=== PATIENT | female | born 1960 | race Caucasian/White ===

== ENCOUNTER 2019-02-13 00:23 | Outpatient (CLI) | payer OTHER | END 2019-02-13 00:24 | disposition short-term general hospital (02) | LOC: EMS 00:23 | PROVIDERS: ATTEND Surgery | DX: R10.12 Left upper quadrant pain (principal) | CPT/HCPCS: A0425; A0426 ==

== ENCOUNTER 2022-05-05 15:50 | Outpatient (CLI) | payer OTHER ==
--- NOTE | 2022-05-06 00:54 | XRAY Report ---
PROCEDURE: Chest 2 View X-Ray INDICATIONS: PRODUCTIVE COUGH TECHNIQUE: 2 views of the chest were acquired. COMPARISON: None. FINDINGS: Cardiomediastinal contour and central vasculature are normal. Lungs demonstrate mild diffuse coarseni ng of the interstitial markings bilaterally without dense consolidation, effusion, or pneumothorax. S oft tissues and osseous structures are normal. IMPRESSION: 1. Mild diffuse interstitial thickening may be seen in viral pneumonia. Correlate clinically. Reviewed by: Krystin Pinzon MD on 05/06/2022 12:53 AM PDT Approved by: Krystin Pinzon MD on 05/06/2022 12:53 AM PDT Station ID: [id number]
== END 2022-05-05 23:59 | disposition home or self-care (01) ==
LOC: DI.N 15:50
PROVIDERS: ATTEND Nurse Practitioner
DX: R05.9 Cough, unspecified (principal)

== ENCOUNTER 2022-10-17 13:15 | Emergency (ER) | payer OTHER ==
[2022-10-17] MEDS ORDERED: IPRATROPIUM/ALBUTEROL 3 ML NEB INH STA (13:48)
[2022-10-17] MEDS ORDERED: ACETAMINOPHEN 500 MG TABLET PO STA (13:49)
[2022-10-17] MEDS ORDERED: DEXAMETHASONE 10 MG/ML VIAL IVP STA (13:50)
[2022-10-17] MEDS ORDERED: ONDANSETRON 4 MG/2 ML VIAL IVP STA (13:51)
[2022-10-17 14:15] LABS: BASOPHILS % (AUTO) 0.2 %; EOSINOPHILS % (AUTO) 0.2 %; HCT - HEMATOCRIT 36.7 % (37.0-47.0); HGB - HEMOGLOBIN 12.5 g/dL (12.0-16.0); LYMPHOCYTES # (AUTO) 1.2 10^3/uL (1.5-3.5); LYMPHOCYTES % (AUTO) 25.5 %; MEAN CORPUSCULAR HEMOGLOBIN 28.9 pg (27.0-31.0); MEAN CORPUSCULAR HGB CONC 34.1 g/dL (32.0-36.0); MEAN PLATELET VOLUME 9.4 fL (7.9-10.8); MONOCYTES # (AUTO) 0.3 10^3/uL (0.0-1.0); MONOCYTES % (AUTO) 7.2 %; NEUTROPHILS # (AUTO) 3.1 10^3/uL (1.5-6.6); NEUTROPHILS % (AUTO) 66.7 %; PLT - PLATELET COUNT 164 10^3/uL (130-450); RED BLOOD COUNT 4.32 10^6/uL (4.20-5.40); RED CELL DISTRIBUTION WIDTH 11.8 % (12.0-15.0); WHITE BLOOD COUNT 4.6 x10^3/uL (4.8-10.8)
--- OUTSIDE RECORDS SUMMARY | 2022-10-17 14:26 | EXTERNAL MEDICAL SUMMARY RPT | Continuity of Care Document ---
:1960 Author Organization [facility] Address [address] [place] [address] Phone Allergies No information. Encounters No information. Functional Status No information. Immunizations No information. Medications No information. Problems date description facility 2022-08-31 13:47 Low back pain, unspecified [facility] 2022-08-31 19:33 Low back pain, unspecified [facility] Procedures No information. Results/Labs test date author facility value unit interpret ation Result panel 1 (unknown) (no (unknown) (unknown) (no value) (units (unk nown) date) unknown) (unknown) (no (unknown) (unknown) 08/31/22 (units (unkno wn) date) unknown) (unknown) (no (unknown) (unknown) 1. No canal (units (un known) date) stenosis or unknown) foraminal stenosis. (unknown) (no (unknown) (unknown) [address] [place] [address] (units (unknown) date) unknown) (unknown) (no (unknown) (unknown) 2. Multilevel (units ( unknown) date) facet unknown) arthropathy. (unknown) (no (unknown) (unknown) Accession (units (unkn own) date) Number: unknown) [id number] (unknown) (no (unknown) (unknown) Age/Sex: 62 / F (units (unknown) date) Date of Service: unknown) (unknown) (no (unknown) (unknown) Alignment and (units ( unknown) date) Curvature: There unknown) is normal bony alignment. (unknown) (no (unknown) (unknown) [facility] (units ( unknown) date) [id number] unknown) (unknown) (no (unknown) (unknown) Approved by: (units (u nknown) date) keith Rodrigez M.D. on 09/01/2022 at 9:30 (unknown) (no (unknown) (unknown) Bone Marrow: (units (u nknown) date) Marrow is of unknown) normal overall signal. No acute vertebral body (unknown) (no (unknown) (unknown) COMPARISON: (units (un known) date) [facility] unknown) [facility], CR, XR LUMBAR SPINE WITH (unknown) (no (unknown) (unknown) : 1960 (units (unknown) date) Acct:[id number] unknown) (unknown) (no (unknown) (unknown) Dictated by: (units (u nknown) date) keith Rodrigez M.D. on 09/01/2022 at 9:25 (unknown) (no (unknown) (unknown) FINDINGS: (units (unkn own) date) unknown) (unknown) (no (unknown) (unknown) IMPRESSION: (units (un known) date) unknown) (unknown) (no (unknown) (unknown) INDICATIONS: LOW (units (unknown) date) BACK PAIN unknown) (unknown) (no (unknown) (unknown) Image quality: (units (unknown) date) Excellent. unknown) (unknown) (no (unknown) (unknown) [facility] (units (unknown) date) unknown) (unknown) (no (unknown) (unknown) L1-L2: Mild (units (un known) date) facet unknown) hypertrophy. No canal stenosis or foraminal stenosis. (unknown) (no (unknown) (unknown) L2-L3: Mild (units (un known) date) facet unknown) hypertrophy. Minimal disc bulge. No canal stenosis or (unknown) (no (unknown) (unknown) L3-L4: Mild disc (units (unknown) date) bulge. Mild facet unknown) hypertrophy. No canal stenosis or (unknown) (no (unknown) (unknown) L4-L5: Mild disc (units (unknown) date) bulge. Facet unknown) hypertrophy. No canal stenosis or foraminal (unknown) (no (unknown) (unknown) L5-S1: Facet (units (u nknown) date) hypertrophy. No unknown) canal stenosis or foraminal stenosis. (unknown) (no (unknown) (unknown) Loc: MRI (units (unkno wn) date) unknown) (unknown) (no (unknown) (unknown) MR#: [id number] (units (unknown) date) unknown) (unknown) (no (unknown) (unknown) Magnetic (units (unkno wn) date) Resonance Report unknown) (unknown) (no (unknown) (unknown) Noncontrast (units (un known) date) sagittal T1 spin unknown) echo and T2 fast echo, sagittal STIR, and T2 fast (unknown) (no (unknown) (unknown) OBLIQUES (units (unkno wn) date) unknown) (unknown) (no (unknown) (unknown) Ordering (units (unkno wn) date) Provider: unknown) Fadi Stewart MD (unknown) (no (unknown) (unknown) PLUS FLEXION (units (u nknown) date) EXTENSION, unknown) 08/12/2022, 13:27. (unknown) (no (unknown) (unknown) PROCEDURE: MR (units ( unknown) date) LUMBAR SPINE WO unknown) CON (unknown) (no (unknown) (unknown) Paraspinous Soft (units (unknown) date) Tissues: No unknown) paravertebral masses. (unknown) (no (unknown) (unknown) Patient: (units (unkno wn) date) Sachin Ortez unknown) Jasmina Parkinson (unknown) (no (unknown) (unknown) Procedure: MR (units ( unknown) date) lumbar spine wo unknown) con (unknown) (no (unknown) (unknown) Signed (units (unkno wn) date) unknown) (unknown) (no (unknown) (unknown) Spinal Cord: (units (u nknown) date) Conus medullaris unknown) terminates at the L1 level. Visualized cord (unknown) (no (unknown) (unknown) T12-L1: Disc (units (u nknown) date) height loss, unknown) anterior osteophytes. Disc bulge. Facet (unknown) (no (unknown) (unknown) TECHNIQUE: (units (unk nown) date) unknown) (unknown) (no (unknown) (unknown) canal stenosis (units (unknown) date) or foraminal unknown) stenosis. (unknown) (no (unknown) (unknown) compression (units (un known) date) unknown) (unknown) (no (unknown) (unknown) demonstrates (units (u nknown) date) unknown) (unknown) (no (unknown) (unknown) foraminal (units (unkn own) date) unknown) (unknown) (no (unknown) (unknown) fractures. (units (unk nown) date) unknown) (unknown) (no (unknown) (unknown) hypertrophy. No (units (unknown) date) unknown) (unknown) (no (unknown) (unknown) may be (units (unkno wn) date) performed. unknown) (unknown) (no (unknown) (unknown) normal signal (units ( unknown) date) and size. unknown) (unknown) (no (unknown) (unknown) spin echo (units (unkn own) date) unknown) (unknown) (no (unknown) (unknown) stenosis. (units (unkn own) date) unknown) (unknown) (no (unknown) (unknown) through the (units (un known) date) lumbar spine. In unknown) cases with scoliosis, additional coronal T2 fast Social History No information. Vital Signs No information.
[2022-10-17 14:29] LABS: ALBUMIN 3.4 g/dL (3.2-5.5); ALBUMIN/GLOBULIN RATIO 1.1 (1.0-2.2); BILIRUBIN,TOTAL 0.5 mg/dL (0.2-1.0); CALCIUM 9.4 mg/dL (8.5-10.3); CREATININE 0.7 mg/dL (0.4-1.0); MAGNESIUM 1.6 mg/dL (1.7-2.8); POTASSIUM 3.7 mmol/L (3.5-5.0); TOTAL PROTEIN 6.5 g/dL (6.7-8.2)
--- NOTE | 2022-10-17 14:42 | XRAY Report ---
PROCEDURE: Chest 1 View X-Ray INDICATIONS: chest pain TECHNIQUE: One view of the chest was acquired. COMPARISON: Chest x-ray 05/05/2020 FINDINGS: Surgical changes and devices: None. Lungs and pleura: No pleural effusions or pneumothorax. Lungs are clear. Mediastinum: Mediastinal contours appear normal. Heart size is normal. Bones and chest wall: No suspicious bony lesions. Overlying soft tissues appear unremarkable. IMPRESSION: No acute pulmonary process. Reviewed by: Lynn Hdez MD on 10/17/2022 2:41 PM PDT Approved by: Lynn Hdez MD on 10/17/2022 2:41 PM PDT Station ID: [id number]
--- NOTE | 2022-10-17 15:42 | ED Physician Documentation ---
PD HPI URI - Stated complaint Stated Complaint: LFT SHOULDER/WRIST PX, COVID+ - Chief complaint Chief Complaint: Resp - History obtained from History obtained from: Patient, Family - History of Present Illness Timing - onset: How many days ago (3-4) Timing duration: Days (3-4) Timing details: Abrupt onset, Still present Associated symptoms: Fever, Chills, Nasal congestion, Sinus pain, Dry cough, NVD (nausea), Unilateral edema (mild swelling around right ankle. Pain for a week or more in right anterior tibial area with walking. no calf pain per se.), Other (diffuse joint aches) Contributing factors: Sick contact (tested positive for COVID 2 days ago. Has gotten much worse breathing and feels an increase in her asthma symptoms.) Similar symptoms before: Diagnosis (history of asthma and has had some exac with URIs, but current feels more than other times.) Recently seen: Clinic (went to PCP for her leg pain several days ago, prior to URI symptoms. Outpt U/S was ordered and is scheduled for this coming week.) Review of Systems Constitutional: reports: Fever, Chills, Myalgias, Fatigue Nose: reports: Congestion Throat: denies: Sore throat Cardiac: reports: Chest pain / pressure (with coughing) Respiratory: reports: Dyspnea, Cough, Wheezing GI: reports: Nausea. denies: Vomiting, Diarrhea Skin: denies: Rash Neurologic: reports: Generalized weakness, Headache. denies: Near syncope, Altered mental status PD PAST MEDICAL HISTORY - Past Medical History Cardiovascular: None Respiratory: Asthma Neuro: Migraines (gets botox injections, which help a lot. ) Endocrine/Autoimmune: HyPOthyroidism GI: Hemorrhoids Psych: Depression, Anxiety Musculoskeletal: Fibromyalgia - Present Medications Home Medications: Ambulatory Orders Medication Instructions Recorded Confirmed Albuterol Sulfate [Albuterol 1 puffs INH PRN PRN 02/12/19 02/12/19 Sulfate Hfa] Fluticasone/Salmeterol [Advair Hfa 2 puffs BID 02/12/19 02/12/19 230-21 Mcg Inhaler] Sertraline [Zoloft] 100 mg PO DAILY 02/12/19 02/12/19 Zafirlukast [Accolate] 20 mg PO BID 02/12/19 02/12/19 Ipratropium [Atrovent] 0.5 mg INH Q6H #30 each 10/17/22 Ondansetron Odt [Zofran] 4 mg TL Q6H PRN #15 tablet 10/17/22 dexAMETHasone [Decadron] 4 mg PO DAILY #5 tablet 10/17/22 - Allergies Allergies/Adverse Reactions: Allergies Allergy/AdvReac Type Severity Reaction Status Date / Time aspirin Allergy Emesis Verified 10/17/22 13:26 cefuroxime [From Ceftin] Allergy Hives Verified 10/17/22 13:26 clindamycin Allergy Hives Verified 10/17/22 13:26 cyclobenzaprine Allergy Anxiety Verified 10/17/22 13:26 [From Flexeril] fluoxetine [From Prozac] Allergy Anxiety Verified 02/12/19 18:03 ibuprofen [From Motrin] Allergy Nausea Verified 10/17/22 13:26 pregabalin [From Lyrica] Allergy Unknown Verified 10/17/22 13:26 topiramate [From Topamax] Allergy Unknown Verified 10/17/22 13:26 - Social History Does the pt smoke?: No Smoking Status: Never smoker Does the pt drink ETOH?: No Does the pt have substance abuse?: No - POLST Patient has POLST: No PD ED PE NORMAL - Vitals Vital signs reviewed: Yes - General General: Alert and oriented X 3, Well developed/nourished - HEENT HEENT: Moist mucous membranes, Pharynx benign - Neck Neck: Supple, no meningeal sign, No adenopathy - Cardiac Cardiac: RRR, No murmur - Respiratory Respiratory: No: Clear bilaterally (diffuse exp wheezing and decreased tidal volume. ) - Abdomen Abdomen: Soft, Non tender - Derm Derm: Normal color, Warm and dry - Extremities Extremities: No edema, Other (right leg with some swelling around ankle and some pain mostly anterior tibial area, not really in calf. ) - Neuro Neuro: Alert and oriented X 3, No motor deficit, Normal speech Results - Vitals Vitals: Oxygen O2 Source Room air - Labs Labs: Laboratory Tests 10/17/22 10/17/22 10/17/22 14:08 14:08 14:08 WBC 4.6 L RBC 4.32 Hgb 12.5 Hct 36.7 L MCV 85.0 MCH 28.9 MCHC 34.1 RDW 11.8 L Plt Count 164 MPV 9.4 Neut # (Auto) 3.1 Lymph # (Auto) 1.2 L [place] # (Auto) 0.3 Eos # (Auto) 0.0 Baso # (Auto) 0.0 Absolute Nucleated RBC 0.00 Nucleated RBC % 0.0 Sodium 135 Potassium 3.7 Chloride 100 L Carbon Dioxide 25 Anion Gap 10.0 BUN 14 Creatinine 0.7 Estimated GFR (MDRD) 84 L Glucose 101 H Calcium 9.4 Magnesium 1.6 L Total Bilirubin 0.5 AST 39 ALT 34 Alkaline Phosphatase 66 Total Creatine Kinase 166 B-Natriuretic Peptide 49 Total Protein 6.5 L Albumin 3.4 Globulin 3.1 Albumin/Globulin Ratio 1.1 Lipase 32 - Rads (name of study) chest xray Relevant Findings:: Prelim report reviewed, EMP independent interpretation of test (no infiltrates), See rad report duplex right leg Relevant Findings:: Prelim report reviewed (no DVT), See rad report PD Medical Decision Making - ED course Complexity details: reviewed results (right leg without DVT. Sounds like anterior tibial muscle strain ("nur splint").), considered differential (tested positive for COVID 2 days ago. Has increasing dyspnea and cough. history of asthma with mild symptoms. can treat as asthma exac. She is past the window for much effect from Paxlovid. ), d/w patient Departure - Departure Disposition: 01 Home, Self Care Clinical Impression: Exacerbation of asthma, Acute joint pain, COVID-19 Condition: Stable Record reviewed to determine appropriate education?: Yes Prescriptions: Ipratropium [Atrovent] 0.5 mg INH Q6H #30 each dexAMETHasone [Decadron] 4 mg PO DAILY #5 tablet Ondansetron Odt [Zofran] 4 mg TL Q6H PRN #15 tablet PRN Reason: Nausea / Vomiting Comments: Your chest x-ray is clear without any signs of pneumonia. Your basic blood tests are good without any signs of heart failure or heart muscle injury. Your ultrasound of the leg does not show any blood clots. Otherwise basic electrolytes and blood count are good as well. At this point I would presume the symptoms are largely the effect of the viral illness along with the exacerbation of asthma. I would have you add ipratropium/Atrovent to your albuterol in the nebulizer 4 times a day over the next several days to week. This seemed to work better than the albuterol alone for you. Dexamethasone steroid daily for the next 5 days to help with inflammation of the airways and decrease your asthma symptoms. Use ondansetron if needed for nausea. Tylenol 650 mg 4 times daily to help with pains. Stay well-hydrated. I sent your prescriptions to [facility] in [place]. I would anticipate improvement over the next several days and resolution over the next 5 to 7 days. Recheck if worsening Discharge Date/Time: 10/17/22 16:09
--- NOTE | 2022-10-17 15:56 | Ultrasound Report ---
PROCEDURE: Duplex Ext Veins Right INDICATIONS: right lower leg pain and some ankle edema. TECHNIQUE: Real-time imaging, as well as color and pulse Doppler interrogation, were performed of the lower extr emity deep veins from the inguinal ligament to the popliteal fossa. COMPARISON: None. FINDINGS: The deep veins are normally compressible, and free of intraluminal thrombus. Color and pu lse Doppler demonstrate normal phasic intraluminal flow. There is normal augmentation response to di stal compression maneuver. IMPRESSION: No deep venous thrombosis. Reviewed by: Lynn Hdez MD on 10/17/2022 3:54 PM PDT Approved by: Lynn Hdez MD on 10/17/2022 3:54 PM PDT Station ID: [id number]
[2022-10-17 16:10] VITALS: BP 113/54
== END 2022-10-17 16:09 | disposition home or self-care (01) ==
LOC: ED 13:15
DX: U07.1 COVID-19 (principal); J45.901 Unspecified asthma with (acute) exacerbation; M25.571 Pain in right ankle and joints of right foot
CPT/HCPCS: 36415; 71045; 80053; 82550; 83690; 83735; 83880; 85025; 93971; 94640; 96374; 96375; 99284; A9270

== ENCOUNTER 2023-11-02 12:47 | Outpatient (CLI) | payer MEDICARE, OTHER ==
--- NOTE | 2023-11-02 22:36 | SLEEP CARE CONSULTATION ---
Information from patient questionnaire entered by Hernando Butts. I have reviewed and concur with the information entered by Hernando Butts. This document represents the service I personally performed and the decisions made by me, Natalia Uriostegui MD, [facility]. History of Present Illness Service Date and Time: 11/02/2023 1247 Reason for Visit: New patient Chief Complaint: reports: Insomnia, Excessive daytime sleepiness, Fatigue, Frequent awakenings at night, Other (PRIMARY CARE PROVIDER UNCOMFORTABLE PRESCRIBING SLEEP MEDS) Date of Onset: SINCE MY TEENS Usual bedtime: 2300 Time it takes to fall asleep: 30MIN TO AN HR SOMETIMES LONGER Snores at night: No Observed to quit breathing while asleep: No Sleeps alone due to snoring: No Number of times waking at night: 1-2 Reasons for waking at night: reports: Pain, Other (UNKNOWN) Toss, Turn, or Twitch while sleeping: No Recalls having dreams: Yes Usually gets out of bed at: VARIES Feels refreshed in the morning: No Morning headache: Yes Sleepy or fatigued during the day: Yes Ever fallen asleep while driving: No Takes day naps: Yes Dreams during day naps: Yes Prior sleep studies: Yes Additional HPI information: I have the pleasure of seeing Ms. Ortez today regarding the possibility of her having a sleep disorder. As you know, she is a 63-year-old lady who complains of insomnia for over 40 years. She states that she contracted fibromyalgia from her college dormitory, and because of the condition, she needs more sleep. When she does not sleep enough, the pain is worse. She has been taking trazodone for about 40 years but recently her furnace unloader said the medication made her eyes dry. Doxepin was tried but it did not work. She is looking for something else to take. The patient tells me that she normally goes to bed around 11 pm, and it takes her approximately 30 - 60 minutes to fall asleep. She does not snore and has never been observed to quit breathing at night. Her sleeps in the same room. He wears a CPAP. She sleeps with earplugs. She can recall waking up on the average of 1 - 2 times during the night. Most of the time she wakes up because of pain. She usually wakes up around 3:30 am and unable to fall back asleep. She lies in bed until 6 am. She takes a short nap of less than 30 minutes during the day. She reports having concentration and memory problems. She denies having restless leg syndrome. She feels tired and sleepy during the day. Her Ambrose Sleepiness Scale score is only 2. She said she had a sleep study with Dr. Arizmendi in [place] 30 years ago (this is not quite possible because our sleep [facility] the [facility] [place] and started 20 years ago). She said she only had the study but never seen the doctor. No diagnosis or treatment came out from the study. - Parasomnia Symptoms Ever been unable to move upon waking from sleep: No Walks in sleep: No Talks in sleep: No Ever acted out dreams in sleep: No Ever felt weak in the knees when startled or emotional: No Bothered by creepy, crawly, restless sensations in legs: No Problems with memory or concentration: Yes Subjective Initial Ambrose Sleepiness Scale score: 2 (10/27/23) Past Medical History Past Medical History: reports: Arthritis, Hypothyroidism, Fibromyalgia, Anxiety, Asthma, Other (SEVERE DRY EYE, MIGRAINES, ENVIRONMENTAL ALLERGIES) Social History The patient's occupation is a [employer]. Patient is and lives in [place]. Have you smoked in the past 12 months: No Alcohol use: No Caffeine use: Yes Caffeine amount and frequency: [address] PEPPER W/MIGRINE MED Family History Family history of sleep disordered breathing: No (UNKNOWN) Allergies and Home Medications Known drug allergies: Yes ( LISTED ) Drug allergies reviewed: Yes Home medication list reviewed: Yes Allergy and home medication list: Allergies aspirin Allergy (Verified 10/29/23 14:45) Emesis cefuroxime [From Ceftin] Allergy (Verified 10/29/23 14:45) Hives clindamycin Allergy (Verified 10/29/23 14:45) Hives cyclobenzaprine [From Flexeril] Allergy (Verified 10/29/23 14:45) Anxiety fluoxetine [From Prozac] Allergy (Verified 10/29/23 14:45) Anxiety ibuprofen [From Motrin] Allergy (Verified 10/29/23 14:45) Nausea pregabalin [From Lyrica] Allergy (Verified 10/29/23 14:45) Unknown "uncontrolled urination and weight gain. topiramate [From Topamax] Allergy (Verified 10/29/23 14:45) Unknown Review of Systems Cardiovascular: reports: high blood pressure Respiratory: reports: shortness of breath, wheeze, sputum production Gastrointestinal: reports: difficulty swallowing Urinary: reports: incontinence Neurological: reports: headaches Psychiatric: reports: anxiety, depression Ear/Nose/Throat: reports: sinus problems, dry mouth/throat, hoarseness, tonsillectomy Endocrine: reports: thyroid disease, sluggishness, too hot or cold, increased appetite Musculoskeletal: denies: joint pain, neck pain, back pain, joint swelling, muscle pain or cramping, mobility problems, other Immunologic: reports: sneezing, rash, itching, allergies to food or environment Physical Exam Vital signs obtained and entered by: HERNANDO Riggins MA Blood Pressure: 163/83 (LEFT ARM) Cuff size: regular Heart Rate: 77 O2 Saturation: 99 Height: 5 ft 8 in Weight: 193 lb 6.4 oz Body Mass Index: 29.4 BMI Classification: Overweight Neck circumference: 14.5 Mood/affect: Normal HEENT: No craniofacial malformation Nostrils: patent to airflow Turbinates: normal Septum: midline Mouth and throat: normal Soft palate: normal Hard palate: normal Uvula: normal Uvula visualization: 100% Mallampati Class I Tongue: normal in size Tonsils: small Chin and jaw: normal size and position Neck: normal w/o lymphadenopathy or thyromegaly Heart: regular rate and rhythm Lungs: clear bilaterally Extremities: no edema or clubbing Neurologic: intact Impression and Plan IMPRESSION: 1. Insomnia, life-long. The patient has become dependent on sleep aid. The amount of sleep reported is very lowalmost not possible. Therefore, I think there is a component of sleep state misperception. She also has maladaptive belief, such as needing to sleep more than normal because she has fibromyalgia. She complains of constant fatigue which she attributes to insufficient. I explained to her that her fatigue most likely is due to other reasons because she is not particularly sleepy during the day (Ambrose Sleepiness Scale score = 2). I explained to her that her situation is complicated and the amount of her sleep will have to be objectively measured using actigraphy which we do not have locally. I will refer her to a larger sleep center. I will go ahead and repeat the in-laboratory polysomnography here because her previous sleep study report is not available. Plan: 1. Schedule an in-laboratory polysomnography. 2. Referral made to [facility] [place] for actigraphy and Cognitive behavior therapy (CBTi). 3. Consider rheumatology referral for treatment of fibromyalgia. 4. Continue to keep sleep diar5 4. Return for follow up after the sleep study. Follow up with Sleep Care in: 1-2 months Visit Type: In Office Time Spent with Patient (minutes): 25 Provider Statement: I spent 100% of the Face to Face Visit with the patient with greater than 50% spent counseling the patient and coordination of care.
[2023-11-02 22:43] VITALS: BP 163/83; O2SAT 99
== END 2023-11-02 12:48 | disposition home or self-care (01) ==
LOC: SC 12:47
PROVIDERS: ATTEND Internal Medicine Pulmonary Disease
DX: G47.00 Insomnia, unspecified (principal)
CPT/HCPCS: 99202; G0463; 99212

== ENCOUNTER 2023-11-04 14:33 | Outpatient (CLI) | payer MEDICARE, OTHER ==
[2023-11-04 18:08] LABS: CALCIUM 10.2 mg/dL (8.5-10.3); CREATININE 0.6 mg/dL (0.6-1.3)
[2023-11-04 18:19] LABS: THYROID STIMULATING HORMONE 0.03 uIU/mL (0.34-5.60)
== END 2023-11-04 14:34 | disposition home or self-care (01) ==
LOC: LAB.N 14:33
PROVIDERS: ATTEND Family Medicine
DX: E03.9 Hypothyroidism, unspecified (principal)
CPT/HCPCS: 36415; 80048; 84439; 84443

== ENCOUNTER 2023-12-04 19:44 | Outpatient (CLI) | payer MEDICARE, OTHER | END 2023-12-04 19:45 | disposition home or self-care (01) | LOC: SC 19:44 | PROVIDERS: ATTEND Internal Medicine Pulmonary Disease | DX: G47.8 Other sleep disorders (principal); R53.83 Other fatigue; G47.00 Insomnia, unspecified; E66.9 Obesity, unspecified; R41.89 Other symptoms and signs involving cognitive functions and awareness; F32.A Depression, unspecified | CPT/HCPCS: 95810 ==

== ENCOUNTER 2024-01-11 14:56 | Outpatient (CLI) | payer MEDICARE, OTHER ==
--- NOTE | 2024-01-11 14:44 | SLEEP CARE CONSULTATION ---
Information from patient questionnaire entered by Hernando Butts. I have reviewed and concur with the information entered by Hernando Butts. This document represents the service I personally performed and the decisions made by me, Natalia Uriostegui MD, [facility]. History of Present Illness Service Date and Time: 01/11/2024 1400 Current Jefferson Sleepiness Scale score: 1 (01/11/24) Additional HPI information: Ms. Ortez returned for follow up of the sleep study she had on 12-04-23. The polysomnography showed that the patient had reduced sleep efficiency due to frequent awakenings during the night. And web services manager awakening. The sleep architecture abnormal for lack of REM sleep. Respiratory monitoring showed no significant sleep disordered breathing (AHI = 0.0) or hypoxia (aur[place] oxygen saturation of 93%). The patient only slept supine during this study (supine AHI = 0.0; non-supine = 0.00). Snore was infrequent and light in intensity. There was no significant periodic leg movement of sleep. Cardiac rhythm was normal sinus rhythm without significant arrhythmia. No abnormal behavior (parasomnia) observed during the night. The patient was informed of these findings. I explained to her that the sleep study as negative for sleep disrupting conditions. She is now taking zolpidem 10 mg and reports improvement. Sleep Study - Results Type of Sleep Study: Polysomnography (COMPLETED 12/04/23) Allergies and Home Medications Drug allergies reviewed: Yes Home medication list reviewed: Yes Allergy and home medication list: Allergies aspirin Allergy (Verified 01/07/24 13:14) Emesis cefuroxime [From Ceftin] Allergy (Verified 01/07/24 13:14) Hives clindamycin Allergy (Verified 01/07/24 13:14) Hives cyclobenzaprine [From Flexeril] Allergy (Verified 01/07/24 13:14) Anxiety fluoxetine [From Prozac] Allergy (Verified 01/07/24 13:14) Anxiety ibuprofen [From Motrin] Allergy (Verified 01/07/24 13:14) Nausea pregabalin [From Lyrica] Allergy (Verified 01/07/24 13:14) Unknown "uncontrolled urination and weight gain. topiramate [From Topamax] Allergy (Verified 01/07/24 13:14) Unknown Review of Systems Review of systems same as previous: Yes Physical Exam Vital signs obtained and entered by: HERNANDO Riggins MA Height: 5 ft 8 in (PER PT) Weight: 193 lb (PER PT) Body Mass Index: 29.3 BMI Classification: Overweight Impression and Plan IMPRESSION: 1. Insomnia, chronic for over 40 years involving both sleep onset and maintenance. She took trazodone regularly for 30+ years and quit when it caused dry eyes. I have referred he to [facility] for actigraphy and Cognitive behavior therapy (CBTi) but she has not gotten an appointment yet. I encouraged her to follow through with the evaluation. PLAN: 1. Make an appointment with [facility]. 2. Return for follow up after she is seen, evaluated, and treated at [facility]. Follow up with Sleep Care in: as needed Visit Type: Telehealth Phone Patient Location: car Location of Provider: Home Patient agrees and consents to this telehealth visit type: Yes Patient agrees to have their insurance billed: Yes Time Spent with Patient (minutes): 15 Provider Statement: I spent 100% of the Telehealth Phone Call with the patient with greater than 50% spent counseling the patient and coordination of care.
== END 2024-01-11 14:57 | disposition home or self-care (01) ==
LOC: SC 14:56
PROVIDERS: ATTEND Internal Medicine Pulmonary Disease
DX: F51.04 Psychophysiologic insomnia (principal)
CPT/HCPCS: 99442

== ENCOUNTER 2024-02-16 10:51 | Outpatient (CLI) | payer MEDICARE, OTHER ==
[2024-02-16 19:32] LABS: THYROID STIMULATING HORMONE 0.03 uIU/mL (0.34-5.60)
== END 2024-02-16 10:52 | disposition home or self-care (01) ==
LOC: LAB.N 10:51
PROVIDERS: ATTEND Family Medicine
DX: E03.9 Hypothyroidism, unspecified (principal)
CPT/HCPCS: 36415; 84439; 84443

== ENCOUNTER 2024-02-22 13:15 | Outpatient (CLI) | payer MEDICARE, OTHER ==
--- NOTE | 2024-02-22 18:00 | XRAY Report ---
PROCEDURE: Chest 2V INDICATIONS: COUGH TECHNIQUE: 2 views of the chest were acquired. COMPARISON: 10/17/2022, 05/05/2022 FINDINGS: Surgical changes and devices: None. Lungs and pleura: No pleural effusions or pneumothorax. Lungs are clear. Mediastinum: Mediastinal contours appear normal. Heart size is normal. Bones and chest wall: No suspicious bony lesions. Age-appropriate degenerative changes are seen. Overlying soft tissues appear unremarkable. IMPRESSION: No focal infiltrates are seen. No acute cardiopulmonary process. Reviewed by: Curt Cline MD on 02/22/2024 4:59 PM AKDT Approved by: Curt Cline MD on 02/22/2024 4:59 PM AKDT Station ID: [id number]
== END 2024-02-22 13:30 | disposition home or self-care (01) ==
LOC: DI.N 13:15
PROVIDERS: ATTEND Family Medicine
DX: R05.9 Cough, unspecified (principal)